=== PATIENT | female | born 1970 | race Caucasian/White ===

== ENCOUNTER → 2017-10-11 | Outpatient (CLI) | payer BC | LOC: M.RAD 17:29 | DX: J98.11 Atelectasis (principal); J40 Bronchitis, not specified as acute or chronic ==

== ENCOUNTER 2020-02-19 11:29 | Emergency (ER) | payer OTHER ==
[~2020-02-19] VITALS: Ht 175.3 cm; Wt 89.8 kg
[2020-02-19] MEDS ORDERED: ROBAXIN 750 MG750 MG PO (12:01)
[2020-02-19] MEDS ORDERED: ADDERALL XR 3030 MG PO (12:02)
[2020-02-19] MEDS ORDERED: TRAMADOL 50 MG50 MG PO (12:02)
[2020-02-19] MEDS ORDERED: NORCO 5-325 TA1 EAC2 PO (12:02)
[2020-02-19] MEDS ORDERED: EFFEXOR XR150 MG PO (12:02)
[2020-02-19] MEDS ORDERED: XANAX1 MG PO (12:02)
[2020-02-19 15:08] VITALS: BP 123/76
== END 2020-02-19 15:08 | disposition home or self-care (01) ==
LOC: M.ERS 11:29
DX: R07.81 Pleurodynia (principal); Z98.890 Other specified postprocedural states; Z90.49 Acquired absence of other specified parts of digestive tract; Z90.711 Acquired absence of uterus with remaining cervical stump; Z79.899 Other long term (current) drug therapy; Z88.1 Allergy status to other antibiotic agents; Z88.5 Allergy status to narcotic agent; Z88.8 Allergy status to other drugs, medicaments and biological substances; W22.8XXA Striking against or struck by other objects, initial encounter; Y93.89 Activity, other specified; Y92.89 Other specified places as the place of occurrence of the external cause; Y99.8 Other external cause status

== ENCOUNTER 2020-07-26 11:55 | Emergency (ER) | payer OTHER ==
[~2020-07-26] VITALS: Ht 172.7 cm; Wt 85.3 kg
[~2020-07-26 11:55] MED LIST: ADDERALL XR 3030 MG PO; EFFEXOR XR150 MG PO; NORCO 5-325 TA1 EAC2 PO; ROBAXIN 750 MG750 MG PO; TRAMADOL 50 MG50 MG PO; XANAX1 MG PO
[2020-07-26] MEDS ORDERED: TRAMADOL 50 MG50 MG PO (12:17)
[2020-07-26 13:38] VITALS: BP 132/81
== END 2020-07-26 13:39 | disposition home or self-care (01) ==
LOC: M.ERS 11:55
DX: S16.1XXA Strain of muscle, fascia and tendon at neck level, initial encounter (principal); S00.83XA Contusion of other part of head, initial encounter; Z90.89 Acquired absence of other organs; Z98.890 Other specified postprocedural states; Z90.49 Acquired absence of other specified parts of digestive tract; Z90.711 Acquired absence of uterus with remaining cervical stump; Z88.5 Allergy status to narcotic agent; Z88.6 Allergy status to analgesic agent; Z88.8 Allergy status to other drugs, medicaments and biological substances; W01.0XXA Fall on same level from slipping, tripping and stumbling without subsequent striking against object, initial encounter; Y93.89 Activity, other specified; Y92.89 Other specified places as the place of occurrence of the external cause; Y99.8 Other external cause status